=== PATIENT | male | born 1960 | race African-American/Black ===

== ENCOUNTER 2016-10-13 04:11 | Emergency (ER) | payer BC ==
--- NOTE | ~2016-10-13 | CT4 ---
[facility] A Service of [facility] RADIOLOGY TEXT RESULTS PATIENT: BISHNU ALVAREZ LOCATION: [facility] : 62 UNIT #: [id number] AGE: [address]: Robert Chery MD SEX: M ORDER DR: [id number] [facility]. [place], [place] [address] [id number] MR#: [id number] Acc #: [id number] NAME: BISHNU ALVAREZ : 1960 SEX: M STUDY DATE/TIME: 10/13/2016 5:46 UNIT: [id number] ROOM: STUDY DESCRIPTION: CT Abd and Pelv Wo Cont Attending Physician: Robert Chery M.D. Ordering Physician: Robert Chery M.D. MEDICAL IMAGING REPORT This report is preliminary unless electronic signature is present EXAM CT abdomen and pelvis INDICATIONS Left flank pain and left lower quadrant pain. Nausea and vomiting. TECHNIQUE CT of the abdomen and pelvis without contrast. Coronal and sagittal reconstructions were obtained. This CT exam was performed with one or more of the following radiation dose reduction techniques: automatic exposure control, adjustment of mA and/or kV according to patient size, and iterative reconstruction. COMPARISON None available. FINDINGS There is diffuse hepatic steatosis. Abnormal configuration of the liver suggests background cirrhosis. The gallbladder is not distended. The pancreas, spleen, and adrenal glands are within normal limits. There is a 4 mm calculus in the mid-left ureter, just below the pelvic inlet, resulting in a mild left hydronephrosis. There is moderate left renal edema. No remaining renal calculi. The bowel is not dilated. The appendix is normal. The abdominal aorta is normal in caliber. PELVIS: The bladder is unremarkable. No enlarged pelvic or inguinal lymph nodes. [facility] A Service of [facility] RADIOLOGY TEXT RESULTS PATIENT: BISHNU ALVAREZ LOCATION: [facility] : 62 UNIT #: [id number] AGE: [address]: Robert Chery MD SEX: M ORDER DR: No acute osseous abnormalities. There is fusion across the sacroiliac joints. IMPRESSION 1. 4 mm calculus in the mid-left ureter at the level of the pelvic inlet. This results in a mild left hydronephrosis and moderate left renal edema. 2. No remaining renal calculi. 3. Diffuse hepatic steatosis with morphologic features suggesting background cirrhosis. Dictated by... Reddy Cifuentes M.D. THIS IS AN ELECTRONICALLY VERIFIED REPORT Reddy Cifuentes M.D. at 10/13/2016 10:31 PM JENNYFER/[email or web address] TD: 10/13/2016 21:59 JOB #: [id number] MEDICAL IMAGING REPORT Page 1 of 1 COPY
[2016-10-13 05:08] LABS: URINE SOURCE CLEAN CATCH
[2016-10-13 05:13] LABS: BASOPHIL# 0.1 X10e3 (0-0.3); EOSINOPHIL# 0.2 X10e3 (0-0.7); EOSINOPHIL% 1.6 % (0.0-7.0); HEMATOCRIT 45.2 % (38.0-50.0); HEMOGLOBIN 15.1 gm/dL (13.0-16.0); LYMPHOCYTE# 2.2 X10e3 (1.0-3.5); LYMPHOCYTE% 17.1 % (17.0-45.0); MEAN CELL VOLUME 94.1 FL (83-96); MEAN CORPUSCULAR HEMOGLOBIN 31.5 PG (28-34); MEAN CORPUSCULAR HGB CONC 33.4 g/dL (30-36); MEAN PLATELET VOLUME 7.6 FL (6.5-11.5); MONOCYTE# 0.3 X10e3 (0-1.0); MONOCYTE% 2.5 % (3.0-12.0); NEUTROPHIL# 10.1 X10e3 (1.5-7.1); NEUTROPHIL% 77.8 % (40-75); PLATELET COUNT 258 X10e3 (140-420); RED BLOOD COUNT 4.81 X10e (3.90-5.60); RED CELL DISTRIBUTION WIDTH 13.3 % (11.0-15.5)
[2016-10-13 05:14] LABS: DIFF IND NO
[2016-10-13 05:14] LABS: URINE APPEARANCE CLEAR; URINE BILIRUBIN NEG (NEG); URINE BLOOD NEG (NEG); URINE COLOR YELLOW; URINE GLUCOSE 100 MG/DL (NEG); URINE KETONE NEG (NEG); URINE LEUKOCYTE ESTERASE NEG (NEG); URINE NITRATE NEG (NEG); URINE PROTEIN NEG (NEG); URINE SPECIFIC GRAVITY 1.011 (1.003-1.035); URINE UROBILINOGEN 0.2 MG/DL (NEG)
[2016-10-13 05:18] LABS: CULTURE INDICATED? NO
[2016-10-13 05:47] LABS: ALBUMIN SERUM 4.4 g/dL (3.5-5.0); BILIRUBIN, DIRECT 0.1 mg/dL (0.0-0.2); BILIRUBIN,INDIRECT 0.5 mg/dL (0.0-0.9); BILIRUBIN,TOTAL 0.6 mg/dL (0.2-2.0); BUN/CREATININE RATIO 8.75; CALCIUM SERUM 9.4 mg/dL (8.4-10.2); CREATININE SERUM 1.6 mg/dL (0.6-1.4); GLOM FILT RATE Estimated 48.2 mL/min (>60); POTASSIUM 4.8 mmol/L (3.5-5.1); PROTEIN TOTAL SERUM 7.5 g/dL (6.0-8.3)
== END 2016-10-13 06:25 | disposition home or self-care (01) ==
LOC: CED 04:11
PROVIDERS: Emergency Medicine
DX: R10.32 Left lower quadrant pain (principal); I10 Essential (primary) hypertension; F17.200 Nicotine dependence, unspecified, uncomplicated
CPT/HCPCS: 36415; 74176; 80048; 80076; 81003; 83690; 85025; 96374; 96375; 99284; J1885; J2270; J2405